=== PATIENT | female | born 1960 | race Caucasian/White ===

== ENCOUNTER → 2017-06-05 | Outpatient (CLI) | payer OTHER ==
[~2017-06-05] MED LIST: NOHOMEMEDS
== END | disposition home or self-care (01) ==
LOC: NUC 07:24
DX: E04.2 Nontoxic multinodular goiter (principal)
CPT/HCPCS: 78014; 78999; A9516

== ENCOUNTER → 2017-06-26 | Outpatient (CLI) | payer OTHER | END | disposition home or self-care (01) | LOC: NUC 09:17 | PROC: DWY5GDZ Isotope Administration to Whole Body using Iodine 131 (I-131) (ICD-10-PCS; principal; 2017-06-26) | DX: E04.2 Nontoxic multinodular goiter (principal) | CPT/HCPCS: 79005; A9517 ==